=== PATIENT | female | born 1975 | race Caucasian/White ===

== ENCOUNTER 2018-10-18 12:19 | Outpatient (REF) | payer BC, SELFPAY ==
[2018-10-18 18:29] LABS: TSH 2.42 uIU/mL (0.358-3.74); Vitamin B12 405 pg/mL (193-986)
[2018-10-18 18:46] LABS: FREE T4 0.98 ng/dL (0.76-1.46)
[2018-10-20 10:08] LABS: Cyclic Citrullinated Peptide <2.5 U/mL (<5.0); Rheumatoid Factor <8 IU/mL (<12.5)
[2018-10-20 13:59] LABS: Albumin 63.8 % (55.8-66.1); Total Protein 6.5 g/dl (6.3-8.2)
== END 2018-10-18 12:39 ==
LOC: NCHCN 12:19
PROVIDERS: PCP Internal Medicine; Visit Provider Internal Medicine
DX: E03.9 Hypothyroidism, unspecified (principal); R20.2 Paresthesia of skin
CPT/HCPCS: 86200; 82607; 84165; 84439; 84443; 86431

== ENCOUNTER 2019-03-08 11:55 | Outpatient (CLI) | payer BC, SELFPAY | END 2019-03-08 12:15 | PROVIDERS: PCP Internal Medicine; Visit Provider Internal Medicine | DX: E03.9 Hypothyroidism, unspecified (principal) | CPT/HCPCS: 36415; 84443 ==

== ENCOUNTER 2020-02-29 02:05 | Outpatient (CLI) | payer BC, SELFPAY ==
[2020-02-29 18:50] LABS: TSH 2.47 uIU/mL (0.36-3.74)
== END 2020-02-29 02:25 ==
PROVIDERS: PCP Internal Medicine; Visit Provider Internal Medicine
DX: E03.9 Hypothyroidism, unspecified (principal)
CPT/HCPCS: 36415; 84443

== ENCOUNTER 2021-01-31 02:09 | Outpatient (CLI) | payer BC, SELFPAY ==
[2021-01-31 09:53] LABS: Hemoglobin A1C 5.1 % (<5.7)
[2021-01-31 11:05] LABS: ALT 32 U/L (14-59); AST 28 U/L (15-37); Albumin 4.3 g/dL (3.4-5.0); Alkaline Phosphatase 63 U/L (46-116); Anion Gap 5.5 mmol/L (3-11); BUN 16 mg/dL (7-18); Bilirubin, Total 0.6 mg/dL (0.2-1.0); CO2 29.5 mmol/L (21.0-32.0); Calcium 9.4 mg/dL (8.5-10.1); Chloride 105 mmol/L (98-107); Estimated GFR 59.69 (mL/min/1.73m2); FREE T4 0.94 ng/dL (0.76-1.46); Glucose 85 mg/dL (74-106); Potassium 3.8 mmol/L (3.5-5.1); Sodium 140 mmol/L (136-145); TSH 2.74 uIU/mL (0.36-3.74); Total Protein 7.3 g/dL (6.4-8.2)
[2021-01-31 11:20] LABS: Vitamin D 25 Total 53.5 ng/mL (30-100)
[2021-01-31 17:07] LABS: T3, Total 142 ng/dL (97-169)
== END 2021-01-31 02:10 | disposition home or self-care (01) ==
LOC: LBO 02:09
PROVIDERS: PCP Internal Medicine; Visit Provider Internal Medicine Endocrinology, Diabetes & Metabolism
DX: E03.9 Hypothyroidism, unspecified (principal); M85.88 Other specified disorders of bone density and structure, other site
CPT/HCPCS: 36415; 80053; 82306; 83036; 84439; 84443; 84480

== ENCOUNTER 2021-06-07 13:48 | Outpatient (REF) | payer BC, SELFPAY ==
--- NOTE | 2021-06-07 12:30 | PAPFT_PTH ---
PATIENT: Sandi Chao LOC: [facility]#:[id number] AGE/SX: 45/F ROOM: RE06/07/[address]: Karol Arana : 1975 BED: DIS: 06/07/2021 SPEC #: [id number] RECD: 06/10/21 12:59 STATUS: JAZZY REDora #: [id number] KIP: 06/07/21 12:[address]: Karol Arana DEPT: [facility] Cytology RECD BY: Amanda Anderson ENTERED: 06/10/21 13:00 SP TYPE: PAPFT OTHR DR: Sunil Cornell Tissues: 1 - CX/ENDOCX FOR PAP SMEARS Procedures: PAP THIN PREP/[facility] Screening HPV DNA PROBE Comments: [id number]
== END 2021-06-07 13:49 | disposition home or self-care (01) ==
LOC: NCHCN 13:48
PROVIDERS: PCP Internal Medicine; Visit Provider Family Medicine
DX: Z00.00 Encounter for general adult medical examination without abnormal findings (principal); Z12.4 Encounter for screening for malignant neoplasm of cervix; Z01.419 Encounter for gynecological examination (general) (routine) without abnormal findings; Z11.51 Encounter for screening for human papillomavirus (HPV)
CPT/HCPCS: 88142; 87624

== ENCOUNTER 2021-07-15 16:04 | Outpatient (REF) | payer BC, SELFPAY ==
[2021-07-17 10:40] LABS: Varicella IgG Antibody Positive (See Note)
== END 2021-07-15 16:05 | disposition home or self-care (01) ==
LOC: NCHCN 16:04
PROVIDERS: PCP Internal Medicine; Referring Provider Family Medicine; Visit Provider Family Medicine
DX: Z00.00 Encounter for general adult medical examination without abnormal findings (principal); Z01.84 Encounter for antibody response examination
CPT/HCPCS: 86787

== ENCOUNTER 2022-09-15 15:22 | Outpatient (CLI) | payer BC, SELFPAY ==
[2022-09-15 16:37] LABS: TSH 2.38 uIU/mL (0.36-3.74)
== END 2022-09-15 15:23 | disposition home or self-care (01) ==
LOC: LBO 15:25
PROVIDERS: PCP Internal Medicine; Visit Provider Internal Medicine Endocrinology, Diabetes & Metabolism
DX: E03.9 Hypothyroidism, unspecified (principal); E04.2 Nontoxic multinodular goiter
CPT/HCPCS: 36415; 84443